=== PATIENT | male | born 1960 | race Caucasian/White ===

== ENCOUNTER 2023-02-27 21:10 | Inpatient (IN) | payer BC, MEDICARE ==
[~2023-02-27] VITALS: Ht 177.8 cm; Wt 101.7 kg
[2023-02-27 23:55] LABS: ALANINE AMINOTRANSFERASE 19 U/L (12-78); ALBUMIN 2.5 G/DL (3.4-5.0); ALBUMIN/GLOBULIN RATIO 0.6 (1.1-1.5); ALKALINE PHOSPHATASE 75 IU/L (46-116); ANION GAP 19 (8-16); ASPARTATE AMINO TRANSFERASE 18 U/L (10-37); BILIRUBIN,TOTAL 0.7 MG/DL (0.1-1.0); BLOOD UREA NITROGEN 16 MG/DL (7-18); BUN/CREATININE RATIO 12.6 (10.0-20.0); CALCIUM 9.2 MG/DL (8.5-10.1); CHLORIDE 97 MMOL/L (99-107); CREATININE 1.27 MG/DL (0.60-1.10); GLUCOSE 197 MG/DL (70-104); LIPASE 68 U/L (73-393); POTASSIUM 4.5 MMOL/L (3.5-5.1); SODIUM 132 MMOL/L (135-145); TOTAL CARBON DIOXIDE 16.1 MMOL/L (24-32); TOTAL PROTEIN 6.8 G/DL (6.4-8.2); eCRCL 61 ML/MIN; eGFR 57 ML/MIN
[2023-02-28 00:28] LABS: BASOPHILS % (AUTO) 0.2 % (0-1); EOSINOPHILS % (AUTO) 0.4 % (0-6); HEMATOCRIT 37.3 % (42.0-52.0); LYMPHOCYTES # (AUTO) 0.8 X10'3 (1.1-4.8); LYMPHOCYTES % (AUTO) 6.7 % (21-51); MEAN CORPUSCULAR HEMOGLOBIN 24.6 PG (27.0-31.0); MEAN CORPUSCULAR HGB CONC 32.2 g/dL (33.0-36.5); MEAN CORPUSCULAR VOLUME 76.4 FL (78-98); MEAN PLATELET VOLUME 7.2 FL (7.4-10.4); MONOCYTES # (AUTO) 0.8 X10'3 (0-0.9); MONOCYTES % (AUTO) 7.3 % (2-12); NEUTROPHILS # (AUTO) 9.7 X10'3 (1.8-7.7); NEUTROPHILS % (AUTO) 85.4 % (42-75); RED BLOOD COUNT 4.88 X10'6 (4.70-6.10); RED CELL DISTRIBUTION WIDTH 16.6 % (11.5-14.5); WHITE BLOOD COUNT 11.4 X10'3 (4.5-11.0)
[2023-02-28 00:29] LABS: PLATELET COUNT 616 X10'3 (140-440)
[2023-02-28] MEDS ORDERED: ondansetron/PF 4mg/2ml inj IV ONE (01:15)
[2023-02-28] MEDS ORDERED: pantoprazole 40 MG/NS 100ML add-vantage BAG IV ONE (01:15)
[2023-02-28] MEDS ORDERED: normal saline 1000ML IV soln IVB ONE (01:15)
[2023-02-28] MEDS ORDERED: pantoprazole 40 MG vial IV ONE (01:15)
[2023-02-28] MEDS ORDERED: iohexol 300mg/ml 100ml inj. ONE (01:24)
[2023-02-28] MEDS ORDERED: HYDROmorphone inj. 0.5 MG/0.5 ML DISP.SYRIN IV PRN (04:05)
[2023-02-28] MEDS ORDERED: HYDROcodone/acetaminophen 5mg/325mg tablet PO PRN (04:05)
[2023-02-28] MEDS ORDERED: diphenhydrAMINE 50 mg/ml inj IV PRN (04:05)
[2023-02-28] MEDS ORDERED: acetaminophen 325mg tablet PO PRN ×2 (04:05)
[2023-02-28] MEDS ORDERED: magnesium hydroxide 30ml (MOM) UD suspension PO PRN (04:05)
[2023-02-28] MEDS ORDERED: diphenhydrAMINE 25mg capsule PO PRN (04:05)
[2023-02-28] MEDS ORDERED: ondansetron 4mg rapidly disintigrating tab PO PRN (04:05)
[2023-02-28] MEDS ORDERED: bisacodyl 10mg suppository rectal RC PRN (04:05)
[2023-02-28] MEDS ORDERED: morphine 2 MG/ML inj. syringe IV PRN (04:05)
[2023-02-28] MEDS ORDERED: acetaminophen 650mg rectal suppository RC PRN (04:05)
[2023-02-28] MEDS ORDERED: mag hydrox/Alum hydrox/simeth 30ml oral suspension PO PRN (04:05)
[2023-02-28 05:14] LABS: ABG BASE EXCESS -3.6 mmol/L (-2.0-2.0); ABG HCO3 17.2 mmol/L (22.0-26.0); ABG OXYGEN SATURATION 97.1 % (94-97); ABG PCO2 (T) 20.3 mmHg (35.0-48.0); ABG PH (T) 7.546 (7.340-7.440); ABG PO2 (T) 87.3 mmHg (75.0-100.0); FCOHb 0.3 % (0.0-3.9); FHHb 2.9 % (0.0-5.0); FMetHb 0.3 % (0.0-1.5); FO2Hb 96.5 % (94-97); MODE RA; PATIENT TEMPERATURE 37.1; TOTAL HEMOGLOBIN 10.6 G/dl (14.0-17.9)
[2023-02-28] MEDS: ondansetron/PF 4mg/2ml inj IV PRN (06:31)
[2023-02-28] MEDS: normal saline 1000ml 1,000 ML IV SCH ×2 (06:31→14:05)
[2023-02-28] MEDS: morphine 2 MG/ML inj. syringe IV PRN ×2 (06:31→13:50)
[2023-02-28] MEDS: pantoprazole 40MG/NS 100ML BAG 100 ML IV SCH (07:40)
[2023-02-28] MEDS: furosemide 40mg/4ml inj IV SCH (07:40)
[2023-02-28] MEDS: heparin, porcine 5000 units/ml vial SQ SCH ×2 (07:41→20:33)
[2023-02-28] MEDS: docusate sod 100mg capsule PO SCH ×2 (07:41→20:30)
[2023-02-28 08:08] LABS: BILIRUBIN,URINE SMALL (Neg); CLARITY,URINE CLEAR (Clear); COLOR,URINE YELLOW (Yellow); GLUCOSE, URINE NEGATIVE (Neg); KETONES,URINE >=80 mg/dl (Neg); LEUKOCYTE ESTERASE ,URINE NEGATIVE (Neg); NITRITES, URINE NEGATIVE (Neg); OCCULT BLOOD,URINE NEGATIVE (Neg); PROTEIN,URINE TRACE mg/dl (Neg); UROBILINOGEN,URINE 0.2 E.U/dL (0.2-1.0)
[2023-02-28 08:09] LABS: UA COLLECTION TYPE CLN CATCH MIDSTREAM
[2023-02-28 08:15] LABS: BACTERIA,URINE NONE SEEN /HPF (Neg); MUCUS STRANDS FEW /LPF (Neg); RBC,URINE 0-2 /HPF (0-2); SQUAMOUS EPITHELIAL CELL,UR NONE SEEN /LPF (FEW); WBC,URINE NONE SEEN /HPF (0-4)
[2023-02-28 08:38] LABS: URINE AMPHETAMINE SCREEN NEGATIVE (Neg); URINE BARBITUATE SCREEN NEGATIVE (Neg); URINE BENZODIAZEPINES SCREEN NEGATIVE (Neg); URINE CANNABINOID SCREEN POSITIVE (Neg); URINE COCAINE SCREEN NEGATIVE (Neg); URINE METHADONE SCREEN NEGATIVE (Neg); URINE OPIATE SCREEN POSITIVE (Neg); URINE PHENCYCLIDINE SCREEN NEGATIVE (Neg)
--- NOTE | 2023-02-28 09:30 | NUR ---
Paged Dr. Marmolejo PAGER ID: [phone] MESSAGE: HIEU HOLDEN RN RE; Norm Tidwell. Patient wanted to talk to you if patient will have paracentesis and also they want hospice referral. I did order case management consultation for this.
[2023-02-28] MEDS: HYDROcodone/acetaminophen 10/325mg tab PO PRN ×3 (09:47→21:28)
[2023-02-28 09:50] LABS: MAGNESIUM 1.9 MG/DL (1.5-2.4); PHOSPHORUS 3.7 MG/DL (2.3-4.5); THYROID STIMULATING HORMONE 6.16 ulU/ml (0.34-4.50)
[2023-02-28 09:55] LABS: HEMOGLOBIN A1C 7.4 % (4.5-6.2)
[2023-02-28 09:59] LABS: APTT 35 SECONDS (22-32); D-DIMER 2.72 MG/L FEU (0-0.50); INR 1.4 INR
[2023-02-28] MEDS ORDERED: HYDR-3972 PO (12:13)
[2023-02-28] MEDS ORDERED: OMEP20CA16 PO (12:13)
[2023-02-28] MEDS ORDERED: INSU100I31 SQ ×2 (12:13)
[2023-02-28] MEDS ORDERED: glucagon, human recombinant 1mg kit SUBCUT PRN (14:20)
[2023-02-28] MEDS ORDERED: MESSAGE TO PHARMACY PO ONE (14:20)
[2023-02-28] MEDS ORDERED: DEXTROSE 15 GM of carb/4 tabs (each vial/BOTTLE has 4 tablets) PO PRN ×2 (14:20)
[2023-02-28] MEDS ORDERED: insulin Lispro (HumaLOG) vial - multi-dose SQ SCH (14:20)
[2023-02-28] MEDS ORDERED: dextrose 50%-water 50ml dispensing syringe IV PRN ×2 (14:20)
[2023-02-28] MEDS ORDERED: temazepam 15mg capsule PO PRN (21:00)
[2023-02-28] MEDS: insulin glargine (Lantus) pen - multi-dose SQ SCH (21:00)
--- NOTE | 2023-02-28 21:15 | NUR ---
Patient in room PCU 3026. I have received report from HOLGER Valdez and had the opportunity to ask questions and assume patient care.
--- NOTE | 2023-02-28 21:35 | NUR ---
pt arrived via gurney. assisted to bed. oriented to room. call light in reach. Family at bedside.
[2023-02-28 21:40] VITALS: RESP 20; O2SAT 99
[2023-02-28 21:45] VITALS: BP 139/68; PULSE 86; RESP 20; TEMP 97.4; O2SAT 99
[2023-03-01] VITALS (8 sets, daily range): BP systolic 101–158; BP diastolic 45–85; PULSE 70–122; RESP 14–24; TEMP 97–98.4; O2SAT 94–99
[2023-03-01] MEDS: HYDROcodone/acetaminophen 10/325mg tab PO PRN ×2 (03:38→22:34)
[2023-03-01] MEDS: normal saline 1000ml 1,000 ML IV SCH ×4 (03:40→20:35)
[2023-03-01 06:33] LABS: ALANINE AMINOTRANSFERASE 15 U/L (12-78); ALBUMIN/GLOBULIN RATIO 0.6 (1.1-1.5); ALKALINE PHOSPHATASE 55 IU/L (46-116); ANION GAP 10 (8-16); ASPARTATE AMINO TRANSFERASE 15 U/L (10-37); BILIRUBIN,TOTAL 0.5 MG/DL (0.1-1.0); BLOOD UREA NITROGEN 14 MG/DL (7-18); BUN/CREATININE RATIO 12.1 (10.0-20.0); CALCIUM 8.4 MG/DL (8.5-10.1); CHLORIDE 102 MMOL/L (99-107); CHOL/HDL RATIO 5.1 (0.00-4.99); CHOLESTEROL 153 MG/DL (0-200); CREATININE 1.16 MG/DL (0.60-1.10); GLUCOSE 148 MG/DL (70-104); HDL CHOLESTEROL 30 MG/DL (35-60); LDL CHOLESTEROL 90 MG/DL (50-100); POTASSIUM 3.6 MMOL/L (3.5-5.1); SODIUM 135 MMOL/L (135-145); TOTAL CARBON DIOXIDE 23.1 MMOL/L (24-32); TOTAL PROTEIN 5.3 G/DL (6.4-8.2); TRIGLYCERIDES 114 MG/DL (20-135); eCRCL 67 ML/MIN; eGFR 64 ML/MIN
[2023-03-01 07:05] LABS: BASOPHILS % (AUTO) 0.4 % (0-1); EOSINOPHILS # (AUTO) 0.7 X10'3 (0-0.9); EOSINOPHILS % (AUTO) 7.9 % (0-6); HEMATOCRIT 30.2 % (42.0-52.0); HEMOGLOBIN 9.8 g/dl (14.0-17.9); LYMPHOCYTES # (AUTO) 0.3 X10'3 (1.1-4.8); LYMPHOCYTES % (AUTO) 4.1 % (21-51); MEAN CORPUSCULAR HEMOGLOBIN 24.8 PG (27.0-31.0); MEAN CORPUSCULAR HGB CONC 32.5 g/dL (33.0-36.5); MEAN CORPUSCULAR VOLUME 76.3 FL (78-98); MONOCYTES # (AUTO) 0.7 X10'3 (0-0.9); NEUTROPHILS # (AUTO) 6.8 X10'3 (1.8-7.7); NEUTROPHILS % (AUTO) 79.6 % (42-75); PLATELET COUNT 433 X10'3 (140-440); RED BLOOD COUNT 3.95 X10'6 (4.70-6.10); RED CELL DISTRIBUTION WIDTH 16.3 % (11.5-14.5); WHITE BLOOD COUNT 8.6 X10'3 (4.5-11.0)
[2023-03-01] MEDS: furosemide 40mg/4ml inj IV SCH (08:25)
[2023-03-01] MEDS: ondansetron/PF 4mg/2ml inj IV PRN ×2 (08:25→19:44)
[2023-03-01] MEDS: docusate sod 100mg capsule PO SCH ×2 (08:26→19:43)
[2023-03-01] MEDS: pantoprazole 40MG/NS 100ML BAG 100 ML IV SCH (08:26)
[2023-03-01] MEDS: heparin, porcine 5000 units/ml vial SQ SCH ×2 (08:26→19:43)
--- NOTE | 2023-03-01 13:04 | NUR ---
Patients family, , refused to accu check patient.
[2023-03-01] MEDS: morphine 2 MG/ML inj. syringe IV PRN (13:44)
--- NOTE | 2023-03-01 14:24 | NUR ---
Noted pt A1C 7.4% hx DM w/ renal cell carcinoma founds to have metastatic disease now requesting route of hospice/palliative care per EMR. DM ed not appropriate at this time. Addendum: 03/01/23 at [address] Amended: Links added.
[2023-03-01] MEDS ORDERED: FLO0.4C PO (14:54)
--- NOTE | 2023-03-01 17:28 | NUR ---
Family refused patients accucheck.
--- NOTE | 2023-03-01 18:16 | NUR ---
Report given to Ela WREN
--- NOTE | 2023-03-01 18:30 | NUR ---
Patient in room PCU 3026. I have received report from HOLGER Cunha and had the opportunity to ask questions and assume patient care.
[2023-03-01] MEDS: insulin glargine (Lantus) pen - multi-dose SQ SCH (21:00)
[2023-03-02 02:00] VITALS: BP 102/63; PULSE 78; RESP 16; TEMP 97; O2SAT 100
[2023-03-02] MEDS: normal saline 1000ml 1,000 ML IV SCH (03:57)
[2023-03-02] MEDS: ondansetron/PF 4mg/2ml inj IV PRN ×2 (05:35→13:52)
--- NOTE | 2023-03-02 06:32 | NUR ---
Problems reprioritized. Patient report given, questions answered & plan of care reviewed with HOLGER Gill.
--- NOTE | 2023-03-02 06:58 | NUR ---
Patient in room PCU 3026. I have received report from LENORE WREN and had the opportunity to ask questions and assume patient care.
[2023-03-02 07:05] LABS: BASOPHILS % (AUTO) 0.7 % (0-1); EOSINOPHILS # (AUTO) 0.6 X10'3 (0-0.9); EOSINOPHILS % (AUTO) 10.2 % (0-6); HEMATOCRIT 30.2 % (42.0-52.0); HEMOGLOBIN 9.8 g/dl (14.0-17.9); LYMPHOCYTES # (AUTO) 0.5 X10'3 (1.1-4.8); LYMPHOCYTES % (AUTO) 8.9 % (21-51); MEAN CORPUSCULAR HEMOGLOBIN 24.8 PG (27.0-31.0); MEAN CORPUSCULAR HGB CONC 32.5 g/dL (33.0-36.5); MEAN CORPUSCULAR VOLUME 76.3 FL (78-98); MEAN PLATELET VOLUME 6.7 FL (7.4-10.4); MONOCYTES # (AUTO) 0.5 X10'3 (0-0.9); MONOCYTES % (AUTO) 8.9 % (2-12); NEUTROPHILS # (AUTO) 4.4 X10'3 (1.8-7.7); NEUTROPHILS % (AUTO) 71.3 % (42-75); PLATELET COUNT 451 X10'3 (140-440); RED BLOOD COUNT 3.95 X10'6 (4.70-6.10); RED CELL DISTRIBUTION WIDTH 16.1 % (11.5-14.5); WHITE BLOOD COUNT 6.1 X10'3 (4.5-11.0)
[2023-03-02 07:42] LABS: ALANINE AMINOTRANSFERASE 16 U/L (12-78); ALBUMIN 1.9 G/DL (3.4-5.0); ALBUMIN/GLOBULIN RATIO 0.6 (1.1-1.5); ALKALINE PHOSPHATASE 53 IU/L (46-116); ANION GAP 11 (8-16); ASPARTATE AMINO TRANSFERASE 16 U/L (10-37); BILIRUBIN,TOTAL 0.4 MG/DL (0.1-1.0); BLOOD UREA NITROGEN 13 MG/DL (7-18); BUN/CREATININE RATIO 11.4 (10.0-20.0); CALCIUM 8.1 MG/DL (8.5-10.1); CHLORIDE 101 MMOL/L (99-107); CREATININE 1.14 MG/DL (0.60-1.10); GLUCOSE 156 MG/DL (70-104); POTASSIUM 3.8 MMOL/L (3.5-5.1); SODIUM 135 MMOL/L (135-145); TOTAL CARBON DIOXIDE 23.1 MMOL/L (24-32); TOTAL PROTEIN 5.3 G/DL (6.4-8.2); eCRCL 68 ML/MIN; eGFR 65 ML/MIN
[2023-03-02] MEDS ORDERED: pantoprazole 40mg Tablet.DR PO SCH (08:00)
[2023-03-02] MEDS: furosemide 40mg/4ml inj IV SCH (09:04)
[2023-03-02] MEDS: morphine 2 MG/ML inj. syringe IV PRN (09:05)
[2023-03-02] MEDS: docusate sod 100mg capsule PO SCH (09:06)
[2023-03-02] MEDS: heparin, porcine 5000 units/ml vial SQ SCH (09:08)
[2023-03-02] MEDS: HYDROcodone/acetaminophen 10/325mg tab PO PRN (10:56)
[2023-03-02 11:56] VITALS: RESP 16
--- NOTE | 2023-03-02 14:54 | NUR ---
patient medicated for pain and nausea x2. Seen by Hospice nurse, and by DR Arshad, is for discharge with Hospice . All DC instructions given to patients spouse. Patient DC home via private car in stable condition with spouse.
== END 2023-03-02 14:20 | disposition hospice, home (50) | DRG 687 ==
LOC: ER 21:16 → ED HOLD 02-28 04:10 → PCU 3S 02-28 19:35
PROVIDERS: ADMIT Family Medicine; ATTEND Internal Medicine
PROC: BW211ZZ Computerized Tomography (CT Scan) of Abdomen and Pelvis using Low Osmolar Contrast (ICD-10-PCS; principal; 2023-02-28)
DX: C64.9 Malignant neoplasm of unspecified kidney, except renal pelvis (principal); E87.1 Hypo-osmolality and hyponatremia; E87.20 Acidosis, unspecified; J90 Pleural effusion, not elsewhere classified; K86.1 Other chronic pancreatitis; N17.9 Acute kidney failure, unspecified; R18.8 Other ascites; N18.9 Chronic kidney disease, unspecified; E11.22 Type 2 diabetes mellitus with diabetic chronic kidney disease; E88.09 Other disorders of plasma-protein metabolism, not elsewhere classified; G89.4 Chronic pain syndrome; K27.9 Peptic ulcer, site unspecified, unspecified as acute or chronic, without hemorrhage or perforation; K80.20 Calculus of gallbladder without cholecystitis without obstruction; Z85.528 Personal history of other malignant neoplasm of kidney; Z90.5 Acquired absence of kidney; Z51.5 Encounter for palliative care
CPT/HCPCS: 36415; 36600; 71045; 74177; 80053; 80061; 80305; 81001; 82803; 82948; 83036; 83605; 83690; 83735; 83880; 83930; 84100; 84443; 85018; 85025; 85379; 85610; 85730; 87040; 87081; 99285; C9113; G0378; J1644; J1815; J1940; J2270; J2405; J3490; J7030; Q9967